=== PATIENT | female | born 1995 | race Caucasian/White ===

== ENCOUNTER 2017-07-11 20:07 | Inpatient (IN) ==
[2017-07-11] MEDS ORDERED: ACETAMINOPHEN 500 MG TABLET PO PRN ×2 (20:16→21:16)
[2017-07-11] MEDS ORDERED: DiphenhydrAMINE 25 MG CAPSULE PO PRN (20:16)
[2017-07-11 20:57] VITALS: BMI 25.2
[2017-07-11] MEDS ORDERED: LIDOCAINE 1% (10mg/ml) 2mL INJ PF SDV ID PRN (21:16)
[2017-07-11] MEDS ORDERED: MAG-AL + SIM ORAL LIQUID 30ml PO PRN (21:16)
[2017-07-11] MEDS ORDERED: CALCIUM CARBONATE Chewable 500mg TABLET PO PRN (21:16)
[2017-07-11] MEDS ORDERED: METHYLERGONOVINE 0.2 MG/ML INJECTION IM PRN (21:16)
[2017-07-11] MEDS ORDERED: CARBOPROST 250 MCG/ML INJECTION IM PRN (21:16)
[2017-07-11] MEDS: LR 1,000 ML IV PRN ×2 (21:34→23:02)
[2017-07-11] MEDS ORDERED: NALOXONE 0.4 MG/ML INJECTION IVP PRN (22:20)
[2017-07-11] MEDS ORDERED: ROPIVACAINE 1% 10MG/ML INJ 200 MG, SUFentanil 50 MCG in NS 100 ML EPI PRN (22:20)
[2017-07-11] MEDS ORDERED: DiphenhydrAMINE 50 MG/ML INJECTION IVP PRN (22:20)
[2017-07-11] MEDS ORDERED: ONDANSETRON 4 MG/2 ML INJECTION IVP PRN (22:20)
--- NOTE | 2017-07-11 22:20 | Anesthesia Preoperative Report ---
Anesthesia Epidural/Spinal Rec - Date and Time Date: 07/11/17 Preoperative Diagnosis: labor, 39+6, Procedure: Labor Epidural Plan: Epidural - Vital Signs NPO since: 1944 /Para: P:0 Heart Rate: 140 - Medictaions & Allergies Inpatient Medications: Current Medications Acetaminophen (Tylenol) 1,000 mg PO Q6HR PRN PRN Reason: Pain Acetaminophen (Tylenol) 500 - 1,000 mg PO Q4H PRN PRN Reason: Pain Al Hydroxide/Mg Hydroxide (Maalox Plus) 30 ml PO Q3H PRN PRN Reason: Indigestion Calcium Carbonate (Tums) 500 - 1,000 mg PO Q2H PRN PRN Reason: Indigestion Carboprost Tromethamine (Hemabate) 250 mcg IM O PRN PRN Reason: .Downtime Diphenhydramine HCl (Benadryl) 25 - 50 mg PO Q4H PRN PRN Reason: Itching Lactated Ringer's (Lactated Ringers) 1,000 mls @ 999 mls/hr IV .Q1H1M PRN Last Admin: 07/11/17 21:34 Dose: 999 mls/hr Lidocaine HCl (Xylocaine-Mpf 1% Vial) 0.2 mg ID O PRN PRN Reason: IV Start Methylergonovine Maleate (Methergine) 0.2 mg IM O PRN Misoprostol (Cytotec) 800 mcg UT ONCE PRN - Medical History Other History: Reports: Now - Surgical History Reproductive Surgery/Treatment: DENIES: Section Anesthesia Reactions: None Hx Family Anesthesia Reaction: No - Social History Smoking Status: Never smoker - Pertinent Findings Lab Data: CBC and BMP 07/11/17 21:22 - Physical Exam Respiratory Exam: lungs clear, bilateral breath sounds equal Cardiovascular Exam: regular rate and rhythm, no murmur - Airway Assessment Mallampati Score: II TMD: 3 Fingerbreadths Neck Extension: good Overall Assessment: may be difficult intubation - ASA ASA Score: 2 - Discussion Discussion: Discussed risks/options/alternatives of anesthesia and questions answered. Patient consents. Nursing pain assessment noted. Attestation Statement: Prior to the delivery of any anesthetic medication, I examined the patient, developed the plan, obtained the patient's consent and discussed the risk and benefits of the procedure with the patient/guardian.
[2017-07-12] MEDS ORDERED: HYDROCODONE/APAP 5mg/325mg TABLET PO PRN (04:14)
[2017-07-12] MEDS ORDERED: HYDROCORTISONE 2.5% CREAM 30gm RECTALLY PRN (04:14)
[2017-07-12] MEDS ORDERED: OXYTOCIN DRIP 30 UNIT/500 ML ML IV SCH (04:15)
[2017-07-12] MEDS: IBUPROFEN 800 MG TABLET PO PRN ×3 (05:53→22:51)
[2017-07-12] MEDS: DOCUSATE CALCIUM 240 MG CAPSULE PO SCH (08:31)
--- NOTE | 2017-07-12 10:52 | Labor and Delivery Note ---
DATE OF DELIVERY 07/12/2017 DELIVERY REPORT Jasmin is a 21-year-old 1 at 40 weeks gestational age who presented to [facility] last evening with contractions and spotting. She changed her cervix from 2 to 3 cm. Her membranes also ruptured with one of the checks returning meconium-stained fluids. She received an epidural. She progressed steadily throughout labor and pushed for less than an hour. She had a spontaneous vaginal delivery in the [place] position of a viable female infant, Apgars 8/9, weight 3740 g, name "Kimberly." An abundant amount of meconium- stained fluid was suctioned out of the mouth and nose. Baby was vigorous at delivery, so she was placed on mom's abdomen and the cord clamping was delayed for more than 2 minutes. The placenta delivered spontaneously. She had a small second-degree laceration that was repaired. Mom and baby tolerated the delivery well. [facility]
--- NOTE | 2017-07-12 22:08 | Anesthesia Postoperative Note ---
- Date and Time Date: 07/12/17 Time: 15:00 - Status Patient Participated in Evaluation: Patient Participated in Person Vital Signs: Temperature 98.5 F 07/12/17 16:00 Pulse Rate 82 07/12/17 16:00 Respiratory Rate 16 07/12/17 16:00 Blood Pressure 110/67 07/12/17 16:00 Pulse Oximetry 97 07/12/17 16:00 Respiratory Function: Airway Patent Cardiovascular Function: Regular Pulse EKG: Sinus Rhythm Mental Status: Alert and Oriented Pain Intensity: 2 Hydration: Taking PO Fluids Complications During Recover: None Apparent - Follow-Up Instructions Instructions: Per Surgeon
[2017-07-12 22:59] VITALS: O2SAT 98
[2017-07-13 06:23] VITALS: BP 110/69; PULSE 82; RESP 16; TEMP 98.2
--- NOTE | 2017-07-13 07:27 | OB/GYN Progress Note ---
OB-PP Progress Note - General PPD1 Maternal Group B Strep: Negative Maternal blood type: A+ Maternal Rubella Status: Immune - Subjective Date: 07/13/17 Lochia: Minimal Pain: controlled Voiding: voiding Nausea or Vomiting Present: No - Objective Vital Signs: Last Vital Signs Temp 98.2 F 07/13/17 06:15 Pulse 82 07/13/17 06:15 Resp 16 07/13/17 06:15 BP 110/69 07/13/17 06:15 Pulse Ox 98 07/12/17 22:58 - Assessment Assessment: SP, - Plan Plan: discharge home
[2017-07-13] MEDS: DOCUSATE CALCIUM 240 MG CAPSULE PO SCH (14:39)
== END 2017-07-13 15:45 | disposition home or self-care (01) | DRG 775 ==
LOC: EDBD → OBOBS 20:07 → MC 20:10
PROVIDERS: ADMIT Obstetrics & Gynecology; ATTEND Obstetrics & Gynecology